=== PATIENT | female | born 1950 | race Caucasian/White ===

== ENCOUNTER 2017-12-22 15:24 | Emergency (ER) | payer MEDICARE, BC ==
[~2017-12-22] VITALS: Ht 162.6 cm; Wt 99.0 kg
[~2017-12-22 15:24] MED LIST: DICL1TAB2 PO; LORA1TAB PO; METF500T PO; PREG50CA PO; TRAM50TA2 PO; ZOLP10TA5 PO
[2017-12-22 15:27] VITALS: BP 118/70
[2017-12-22] MEDS ORDERED: HYDROcodone/acetaminophen 10/325mg tab PO ONE (16:10)
[2017-12-22] MEDS ORDERED: DOXY100C43 PO (16:18)
== END 2017-12-22 16:26 | disposition home or self-care (01) ==
LOC: ER 15:24
DX: L03.311 Cellulitis of abdominal wall (principal); L02.211 Cutaneous abscess of abdominal wall; E11.9 Type 2 diabetes mellitus without complications; G89.29 Other chronic pain; Z90.49 Acquired absence of other specified parts of digestive tract; Z90.710 Acquired absence of both cervix and uterus; Z88.0 Allergy status to penicillin; Z88.2 Allergy status to sulfonamides; Z79.84 Long term (current) use of oral hypoglycemic drugs; Z79.899 Other long term (current) drug therapy
CPT/HCPCS: 99283; A6255

== ENCOUNTER 2018-01-05 16:22 | Emergency (ER) | payer MEDICARE, BC ==
[~2018-01-05] VITALS: Ht 157.5 cm; Wt 98.2 kg
[2018-01-05 16:23] VITALS: BP 144/51
== END 2018-01-05 18:10 | disposition home or self-care (01) ==
LOC: ER 16:23
DX: S31.103A Unspecified open wound of abdominal wall, right lower quadrant without penetration into peritoneal cavity, initial encounter (principal); E11.9 Type 2 diabetes mellitus without complications; G89.29 Other chronic pain; Z90.49 Acquired absence of other specified parts of digestive tract; Z90.710 Acquired absence of both cervix and uterus; Z88.0 Allergy status to penicillin; Z88.2 Allergy status to sulfonamides; X58.XXXA Exposure to other specified factors, initial encounter; Y93.89 Activity, other specified; Y92.89 Other specified places as the place of occurrence of the external cause; Y99.8 Other external cause status
CPT/HCPCS: 99282; A6222; A6402

== ENCOUNTER 2018-06-18 18:13 | Emergency (ER) | payer MEDICARE, BC ==
[~2018-06-18] VITALS: Ht 158.8 cm; Wt 83.0 kg
[2018-06-18] MEDS ORDERED: LISI-600 PO (19:06)
[2018-06-18] MEDS ORDERED: ERGO500014 PO (19:06)
[2018-06-18] MEDS ORDERED: INSU100C10 SQ (19:06)
[2018-06-18] MEDS ORDERED: [UNRECOGNIZED DRUG - OTHER] (19:06)
[2018-06-18] MEDS ORDERED: DOXYCYCLINE 100MG CAPSULE PO STA (21:24)
[2018-06-18 21:39] VITALS: BP 142/88
[2018-06-18] MEDS ORDERED: DOXY100C43 PO (21:46)
[2018-06-18] MEDS ORDERED: HYDR-4383 PO (21:46)
== END 2018-06-18 22:05 | disposition home or self-care (01) ==
LOC: ER 18:13
DX: B34.9 Viral infection, unspecified (principal); L03.313 Cellulitis of chest wall; E11.9 Type 2 diabetes mellitus without complications; G89.29 Other chronic pain; R11.0 Nausea; Z90.49 Acquired absence of other specified parts of digestive tract; Z90.710 Acquired absence of both cervix and uterus; Z88.0 Allergy status to penicillin; Z88.2 Allergy status to sulfonamides
CPT/HCPCS: 71045; 82948; 99283

== ENCOUNTER 2018-06-20 16:34 | Emergency (ER) | payer MEDICARE, BC ==
[~2018-06-20] VITALS: Ht 157.5 cm; Wt 96.3 kg
[~2018-06-20 16:34] MED LIST changes: -DICL1TAB2 PO; +DOXY100C43 PO; +ERGO500014 PO; +HYDR-4383 PO; +INSU100C10 SQ; +LISI-600 PO; -LORA1TAB PO; -METF500T PO; -PREG50CA PO; -TRAM50TA2 PO; -ZOLP10TA5 PO; +[UNRECOGNIZED DRUG - OTHER]
[2018-06-20] MEDS ORDERED: LIDOcaine 1% w/epiNEPHrine 1:200,000 30ml vial IM ONE (17:45)
[2018-06-20] MEDS ORDERED: DOXY100C43 PO (18:19)
[2018-06-20] MEDS ORDERED: CEPH-572 PO (18:19)
[2018-06-20 18:35] VITALS: BP 126/83
== END 2018-06-20 18:36 | disposition home or self-care (01) ==
LOC: ER 16:35
DX: N61.1 Abscess of the breast and nipple (principal); E11.9 Type 2 diabetes mellitus without complications; G89.29 Other chronic pain; Z90.49 Acquired absence of other specified parts of digestive tract; Z90.710 Acquired absence of both cervix and uterus; Z88.0 Allergy status to penicillin; Z88.2 Allergy status to sulfonamides; Z79.4 Long term (current) use of insulin; Z79.899 Other long term (current) drug therapy
CPT/HCPCS: 10060; 99283; J3490

== ENCOUNTER 2018-06-25 08:21 | Inpatient (IN) | payer MEDICARE, BC | END 2018-06-30 16:15 | disposition home or self-care (01) | LOC: ER 08:21 → ED HOLD 10:41 → SUR 3N 12:35 | PROC: 0W980ZX Drainage of Chest Wall, Open Approach, Diagnostic (ICD-10-PCS; principal; 2018-06-25 16:46) | DX: L02.213 Cutaneous abscess of chest wall (principal); N17.9 Acute kidney failure, unspecified; R00.1 Bradycardia, unspecified; L73.9 Follicular disorder, unspecified; E11.21 Type 2 diabetes mellitus with diabetic nephropathy; R42 Dizziness and giddiness ==

== ENCOUNTER 2018-09-01 15:50 | Inpatient (IN) | payer MEDICARE, BC, OTHER | END 2018-09-05 14:35 | disposition home or self-care (01) | LOC: SUR 3N 15:50 | PROC: 0JB60ZZ Excision of Chest Subcutaneous Tissue and Fascia, Open Approach (ICD-10-PCS; principal; 2018-09-03 11:51) | DX: L03.313 Cellulitis of chest wall (principal); N18.3 Chronic kidney disease, stage 3 (moderate); E11.22 Type 2 diabetes mellitus with diabetic chronic kidney disease; G89.29 Other chronic pain; E11.65 Type 2 diabetes mellitus with hyperglycemia ==

== ENCOUNTER 2018-12-09 10:40 | Inpatient (IN) | payer MEDICARE, BC ==
[2018-12-09] VITALS (35 sets, daily range): BP systolic 112–155; BP diastolic 53–82
[~2018-12-09] VITALS: Ht 157.5 cm; Wt 92.7 kg
[~2018-12-09 10:40] MED LIST changes: +ACET-2119 PO; +ASPI-1265 PO; -DOXY100C43 PO; +GABA600T13 PO; -HYDR-4383 PO; +LANTUS SQ; +LINA5TAB4 PO; -LISI-600 PO; +LISI30TA4 PO; +METF500T PO; -[UNRECOGNIZED DRUG - OTHER]
[2018-12-09] MEDS ORDERED: vancomycin inj 1,500 MG in normal saline 300ml IV soln IV ONE (11:30)
[2018-12-09] MEDS ORDERED: famotidine 20mg tablet PO ONE (11:30)
[2018-12-09] MEDS: ringers solution, lacted 1,000 ML IV SCH (12:06)
[2018-12-09 12:07] LABS: BASOPHILS # (AUTO) 0.1 X10'3 (0-0.2); EOSINOPHILS # (AUTO) 0.2 X10'3 (0-0.9); EOSINOPHILS % (AUTO) 2.3 % (0-6); HEMATOCRIT 40.7 % (35.0-45.0); HEMOGLOBIN 13.5 g/dl (12.0-16.0); LYMPHOCYTES # (AUTO) 1.4 X10'3 (1.1-4.8); LYMPHOCYTES % (AUTO) 17.6 % (21-51); MEAN CORPUSCULAR HEMOGLOBIN 28.9 PG (27.0-31.0); MEAN CORPUSCULAR HGB CONC 33.1 g/dL (33.0-36.5); MEAN CORPUSCULAR VOLUME 87.3 FL (78-98); MEAN PLATELET VOLUME 7.7 FL (7.4-10.4); MONOCYTES # (AUTO) 0.6 X10'3 (0-0.9); MONOCYTES % (AUTO) 7.8 % (2-12); NEUTROPHILS # (AUTO) 5.6 X10'3 (1.8-7.7); NEUTROPHILS % (AUTO) 71.3 % (42-75); PLATELET COUNT 217 X10'3 (140-440); RED BLOOD COUNT 4.66 X10'6 (4.20-5.60); RED CELL DISTRIBUTION WIDTH 13.8 % (11.5-14.5); WHITE BLOOD COUNT 7.9 X10'3 (4.5-11.0)
[2018-12-09 12:20] LABS: PARTIAL THROMBOPLASTIN TIME 28 SECONDS (22-32)
[2018-12-09 12:22] LABS: ALANINE AMINOTRANSFERASE 27 U/L (12-78); ALBUMIN 3.5 G/DL (3.4-5.0); ALBUMIN/GLOBULIN RATIO 0.9 (1.1-1.5); ALKALINE PHOSPHATASE 74 IU/L (46-116); ANION GAP 7 (8-16); ASPARTATE AMINO TRANSFERASE 24 U/L (10-37); BILIRUBIN,TOTAL 0.7 MG/DL (0.1-1.0); BLOOD UREA NITROGEN 23 MG/DL (7-18); BUN/CREATININE RATIO 18.1 (6.6-38.0); CALCIUM 9.2 MG/DL (8.5-10.1); CHLORIDE 109 MMOL/L (99-107); CREATININE 1.27 MG/DL (0.40-0.90); GLUCOSE 145 MG/DL (70-104); POTASSIUM 4.8 MMOL/L (3.5-5.1); SODIUM 141 MMOL/L (135-145); TOTAL CARBON DIOXIDE 25.5 MMOL/L (24-32); TOTAL PROTEIN 7.4 G/DL (6.4-8.2); eGFR 42 ML/MIN
[2018-12-09] MEDS ORDERED: ringers solution, lacted 1,000 ML IV SCH (12:46)
[2018-12-09] MEDS ORDERED: ondansetron/PF 4mg/2ml inj IV PRN ×2 (12:50→16:50)
[2018-12-09] MEDS ORDERED: fentaNYL/PF 50MCG/1 ML 2ML syringe IV PRN ×2 (12:50)
[2018-12-09] MEDS ORDERED: labetalol 20mg/4ml (5mg/ml) syringe IV PRN (12:50)
[2018-12-09] MEDS ORDERED: enalaprilat dihydrate 2.5mg/2ml vial IV PRN (12:50)
[2018-12-09] MEDS ORDERED: morphine 4 MG/ML inj SYRINge IV PRN ×2 (12:50)
[2018-12-09] MEDS ORDERED: epiNEPHrine 1 mg/ml inj ONE (13:07)
[2018-12-09] MEDS ORDERED: mineral oil 10ml sterile, topical TP ONE ×2 (13:08→15:35)
[2018-12-09] MEDS ORDERED: LIDOcaine 1% 30ml preserv. free vial ONE (13:08)
[2018-12-09] MEDS ORDERED: sevoflurane 250ml liquid IH ONE (14:51)
[2018-12-09] MEDS ORDERED: midazolam 2 mg/2 ml injection ONE (14:52)
[2018-12-09] MEDS ORDERED: fentaNYL/PF 50MCG/1 ML 2ML syringe ONE ×2 (14:52→15:48)
[2018-12-09] MEDS ORDERED: LIDOcaine 2% (20mg/ml) 5ml vial ONE (15:49)
[2018-12-09] MEDS ORDERED: propofol inj 20 ML IV ONE (15:49)
--- NOTE | 2018-12-09 16:08 | NUR ---
Received from OR via , accompanied by DR. JACKSON, Anesthesiologist and report given by Anesthesiolgist. S/P SPLIT THICKNESS SKIN GRAFT TO LT. CHEST PER DR. CHAUHAN. PT. AWAKE, TEARFUL. SHAKES HEAD NO TO PAIN. REASSURED. RESPS. EVEN & UNLABORED. WOUND VAC TO UPPER RT. CHEST AREA INTACT, GOOD SEAL. NO DRAINAGE PRESENT AT THIS TIME. LT. THIGH GRAFT SITE DRSG. DRY & INTACT. LT. HAND IV PATENT.
[2018-12-09] MEDS ORDERED: dextrose ORAL solution 15 GM/59 ML bottle PO PRN ×2 (16:50)
[2018-12-09] MEDS ORDERED: glucagon, human recombinant 1mg kit SUBCUT PRN (16:50)
[2018-12-09] MEDS ORDERED: MESSAGE TO PHARMACY PO ONE (16:50)
[2018-12-09] MEDS ORDERED: CADD PCA waste documentation MC PRN (16:50)
[2018-12-09] MEDS ORDERED: dextrose 50%-water 50ml dispensing syringe IV PRN ×2 (16:50)
[2018-12-09] MEDS ORDERED: naloxone 0.4 mg/ml inj IV PRN (16:50)
[2018-12-09] MEDS ORDERED: HYDROmorphone/NS 1 mg/ml CADD 50 ML IV SCH (17:00)
--- NOTE | 2018-12-09 17:00 | NUR ---
PT. RESTING QUIETLY. TAKING ICE CHIPS WITHOUT UPSET. AWAITING SURGICAL BED. DENIES PAIN. REASSURED. WOUND VAC INTACT. IV PATENT.
[2018-12-09] MEDS: HYDROmorphone/NS 1 mg/ml CADD 50 ML IV SCH ×3 (17:18→23:00)
--- NOTE | 2018-12-09 18:00 | NUR ---
AWAITING SURGICAL BED. SPOKE W/ RIP/MOULD OPERATOR. PT. A X O X 4. APPROP. RESPS. EVEN & UNLABORED. WOUND VAC INTACT IV PATENT. USING DILAUDID CADD PRN PAIN W/ RELIEF. REASSURED.
--- NOTE | 2018-12-09 19:00 | NUR ---
FAMILY TO BEDSIDE. A X O X 4 APPROP. TAKING DIET SODA WITHOUT UPSET. USING CADD PRN PAIN.
[2018-12-09 19:01] LABS: HEMOGLOBIN A1C 8.1 % (4.5-6.2)
--- NOTE | 2018-12-09 20:15 | NUR ---
REPORT TO BENIGNO PHIPPS.
--- NOTE | 2018-12-09 20:20 | NUR ---
UPT TO BEDSIDE COMMODE. STEADY. VOIDED. A X O X 4. APPROP. USING CADD PRN PAIN. REASSURED. AWAITING SURGICAL BED.
--- NOTE | 2018-12-09 20:20 | NUR ---
Patient in room [facility]. I have received report from DESIRE Kumar and had the opportunity to ask questions and assume patient care.
--- NOTE | 2018-12-09 20:30 | NUR ---
Report called to receiving nurse. Transferred via GURNEY. Belongings W/ PT. PT. A XO X4. APPROP. RESPS. EVEN & UNLABORED. RT. CHEST WOUND VAC INTACT, GOOD SEAL, NO DRAINAGE NOTED @ THIS TIME. LT. THIGH GRAFT SITE DRSG. DRY & INTACT. LT. HAND IV PATENT. USING CADD PRN PAIN. REASSURED. . Special Issues communicated to receiving nurse.
[2018-12-09] MEDS: insulin glargine (Lantus) pen - multi-dose SQ SCH (21:00)
[2018-12-10] VITALS: BP 138/58
[2018-12-10 00:30] VITALS: BP 131/54
[2018-12-10] MEDS: HYDROmorphone/NS 1 mg/ml CADD 50 ML IV SCH ×12 (01:00→23:00)
[2018-12-10 04:00] VITALS: BP 146/82
--- NOTE | 2018-12-10 06:39 | NUR ---
Problems reprioritized. Patient report given, questions answered & plan of care reviewed with Kim Yeh and KIM Middleton.
[2018-12-10 07:21] VITALS: BP 126/50
[2018-12-10] MEDS: insulin Lispro (HumaLOG) vial - multi-dose SQ SCH ×3 (09:31→19:23)
[2018-12-10 11:00] VITALS: BP 126/51
--- NOTE | 2018-12-10 13:34 | NUR ---
WOUND INFECTION EDUCATION PROVIDED BY WOUND CARE 1. Patient instructed to call their primary doctor, or go the ED immediately if any of the following symptoms occur: * Increased pain in wound * Increase in drainage from the wound * Redness in the skin surrounding the wound * Warmth in the skin surrounding the wound * Bleeding from the wound * Temperature of 101 or greater 2. If any of these occur while in the hospital tell a nurse immediately. Addendum: 12/10/18 at 1334 by Sheila Duarte RN Amended: Links added.
--- NOTE | 2018-12-10 15:58 | NUR ---
DM consult: Pt with A1c 8.1 seen at bedside. Noted that patient's A1c on a downward trend previously 10.3 in June down to 9.3 in September. Pt reports better DM management through diet. Pt provided with written DM ed with referral to outpatient DM class. Pt expressed desire to attend outpatient class. Pt s/p skin graft to chest from thigh with wound VAC placement. Pt provided with written and verbal protein education. Pt agrees to double eggs at breakfast and double meat TID, d/w dietary. Pt endorses a good appetite, diet just advanced to CHO controlled from clear liquid, pending documented PO intake. Pt denies any food allergies, difficulty chewing/swallowing, or constipation/diarrhea. Per pt LBM this morning. Will continue to follow. Recommendations: 1) Continue CHO controlled diet; monitor need for addition of renal diet 2) Double eggs at breakfast; double protein TID 3) Wt per rx Addendum: 12/10/18 at [address] Amended: Links added.
--- NOTE | 2018-12-10 18:54 | NUR ---
Problems reprioritized. Patient report given, questions answered & plan of care reviewed with Prudence RN.
[2018-12-10 19:00] VITALS: BP 142/53
--- NOTE | 2018-12-10 19:05 | NUR ---
Patient in room [facility]. I have received report from Ruba PHIPPS and had the opportunity to ask questions and assume patient care.
[2018-12-10] MEDS ORDERED: acetaminophen 325mg tablet PO SCH (21:00)
[2018-12-10] MEDS: insulin glargine (Lantus) pen - multi-dose SQ SCH (21:33)
[2018-12-11] VITALS: BP 133/51
--- NOTE | 2018-12-11 00:10 | NUR ---
Re: CPAP order. Went to set up CPAP on patient. Patient sleeping without apparent distress. Discussed CPAP earlier with patient. She is on very low settings(5cmH2O) but hasn't used her home unit for over 30 days. She says she can't get it to power on. Patient advised to contact her home care provider and have machine evaluated as it is still under warranty. She asked me to set her up at 22:00. I was unable to check at that time but have checked twice since then. She has been sleeping both times without distress. Discussed this with her RN. Machine is on standby outside room and will be set up when patient requests. Addendum: 12/11/18 at 0019 by Dante Tafoya RT Amended: Links added.
[2018-12-11] MEDS: HYDROmorphone/NS 1 mg/ml CADD 50 ML IV SCH ×9 (01:00→17:00)
[2018-12-11] MEDS: ringers solution, lacted 1,000 ML IV SCH (05:17)
[2018-12-11 06:00] VITALS: BP 140/51
--- NOTE | 2018-12-11 06:43 | NUR ---
Patient in room [facility]. I have received report from DESIRE Gurrola and had the opportunity to ask questions and assume patient care.
--- NOTE | 2018-12-11 06:46 | NUR ---
Problems reprioritized. Patient report given, questions answered & plan of care reviewed with Gwendolyn PHIPPS.
[2018-12-11] MEDS ORDERED: aspirin 81mg tab.chew PO SCH (08:00)
[2018-12-11] MEDS ORDERED: metFORMIN 500mg tablet PO SCH (08:00)
[2018-12-11] MEDS ORDERED: lisinopril 10 MG tablet PO SCH (08:00)
[2018-12-11] MEDS: insulin Lispro (HumaLOG) vial - multi-dose SQ SCH ×2 (08:50→15:08)
[2018-12-11 11:00] VITALS: BP 154/72
--- NOTE | 2018-12-11 14:26 | NUR ---
WOUND VAC EDUCATION PROVIDED BY WOUND CARE 1. Patient instructed to call the Wound Center or their Home Health Agency immediately if: * They notice a change in the color or amount of the fluid in the canister. * Their wound looks more red than usual or has a foul smell. * The skin around their wound looks reddened or irritated. * The dressing feels loose or appears to be loose. * They experience any increase or changes in their pain. * The alarm will not turn off. 2. Patient instructed that they should not be disconnected from suction for more than 2 hours at a time. * If they are not able to get the suction back on, they need to remove the dressing and take all of the foam out of the wound. * Then moisten sterile gauze with normal saline and place on/in the wound. * Change the dressing once a day until arrangements have been made to replace the wound vac dressing. 3. Patient instructed to turn the wound vac machine OFF and call 911 or go to the ED immediately if their canister fills rapidly with blood. 4. If any of these occur while in the hospital tell a nurse immediately. Addendum: 12/11/18 at 1427 by Sheila Duarte RN Amended: Links added.
--- NOTE | 2018-12-11 18:15 | NUR ---
Pt discharged to home with all belongings in [facility]. Discharge instructions and medications reviewed. No new prescriptions ordered. Wound vac changed to home wound vac and charged 100% prior to discharge. Pt instructed to follow up with Dr Gaston in 2 weeks and has an appointment scheduled with [facility] on Friday. Pt discharged with home health care services and instructed not to remove adaptic dressing from graft. IV DC'd, cannula intact. Pt escorted to front lobby via wheelchair by PCT.
[2018-12-12] MEDS ORDERED: ergocalciferol (Vitamin D) 50,000 unit capsule PO SCH (08:00)
== END 2018-12-11 18:15 | disposition home or self-care (01) | DRG 578 ==
LOC: PAS 10:40 → SUR 3N 21:15
PROVIDERS: ADMIT Surgery; ATTEND Surgery
PROC: 0HBJXZZ Excision of Left Upper Leg Skin, External Approach (ICD-10-PCS; 2018-12-09)
PROC: 0WU80JZ Supplement Chest Wall with Synthetic Substitute, Open Approach (ICD-10-PCS; 2018-12-09)
PROC: 0HR5X74 Replacement of Chest Skin with Autologous Tissue Substitute, Partial Thickness, External Approach (ICD-10-PCS; principal; 2018-12-09 14:51)
DX: S31.109A Unspecified open wound of abdominal wall, unspecified quadrant without penetration into peritoneal cavity, initial encounter (principal); N18.3 Chronic kidney disease, stage 3 (moderate); I12.9 Hypertensive chronic kidney disease with stage 1 through stage 4 chronic kidney disease, or unspecified chronic kidney disease; E11.22 Type 2 diabetes mellitus with diabetic chronic kidney disease; E66.9 Obesity, unspecified; G89.29 Other chronic pain; R07.89 Other chest pain; E11.42 Type 2 diabetes mellitus with diabetic polyneuropathy; X58.XXXA Exposure to other specified factors, initial encounter; Y93.89 Activity, other specified; Y92.89 Other specified places as the place of occurrence of the external cause; Y99.8 Other external cause status; Z88.0 Allergy status to penicillin; Z88.2 Allergy status to sulfonamides; Z68.37 Body mass index [BMI] 37.0-37.9, adult; G47.33 Obstructive sleep apnea (adult) (pediatric)
CPT/HCPCS: 36415; 80053; 82948; 83036; 85025; 85610; 85730; 94760; A4618; A6223; A6449; A6550; A7000; G0378; J0171; J1170; J1815; J2001; J2250; J2704; J3010; J3370; J7120